=== PATIENT | male | born 2000 | race Caucasian/White ===

== ENCOUNTER 2023-07-11 07:32 | Emergency (ER) | payer OTHER ==
[~2023-07-11] VITALS: Ht 172.7 cm; Wt 68.0 kg
[2023-07-11 09:02] LABS: HEMATOCRIT 45.5 % (39.0-48.0); HEMOGLOBIN 16.1 g/dL (13-16.00); MEAN CELL VOLUME 87.2 fL (80.0-100.00); MEAN CORPUSCULAR HEMOGLOBIN 30.9 pg (27.00-32.0); MEAN CORPUSCULAR HGB CONC 35.4 g/dl (32.0-36.0); PLATELET COUNT 260 K/uL (150-450); RED BLOOD COUNT 5.22 M/uL (4.00-6.00); RED CELL DISTRIBUTION WIDTH 13.2 % (11.5-14.5)
== END 2023-07-11 10:06 | disposition home or self-care (01) ==
LOC: ER 07:32
PROVIDERS: General Practice
DX: R21 Rash and other nonspecific skin eruption (principal); W57.XXXA Bitten or stung by nonvenomous insect and other nonvenomous arthropods, initial encounter
CPT/HCPCS: 36415; 96365; 99282; J3490